=== PATIENT | female | born 1950 | race Caucasian/White ===

== ENCOUNTER 2016-07-02 07:31 | Day surgery (SDC) | payer MEDICARE, OTHER ==
[~2016-07-02] VITALS: Ht 154.9 cm; Wt 51.4 kg
[~2016-07-02 07:31] MED LIST: AMLO10 PO; AMLO10TA2 PEG; ATOR10TA15 PEG; BACL20TA PEG; CEFE2INJ2 IV; CHLO.12%30 BU; COZA25TA PO; DOCU100S PEG; FAMO40TA PEG; GENE10SO PEG; LIPI10TA PO; LOSA25TA PEG; METHY5 PO; METO25TA3 PO; MIRTA15 PO; MODA200T12 PEG; PANT20 PO; Pill Splitter OTHER; VANC1000P IV; [UNRECOGNIZED DRUG - CODE] IV
[2016-07-02 08:06] VITALS: BP 102/69; PULSE 82; RESP 20; TEMP 97.7; O2SAT 99
[2016-07-02] MEDS ORDERED: ROPI0.25 PO (08:40)
[2016-07-02] MEDS ORDERED: [UNRECOGNIZED DRUG - OTHER] PO (08:40)
[2016-07-02] MEDS ORDERED: FISH120014 PO (08:40)
[2016-07-02] MEDS ORDERED: FISHCAP4 PO (08:40)
[2016-07-02] MEDS ORDERED: VITA500T49 PO (08:40)
[2016-07-02] MEDS ORDERED: DIVA250T3 PO (08:40)
[2016-07-02] MEDS ORDERED: NITR1CAP37 PO (08:40)
[2016-07-02] MEDS ORDERED: ALEN1TAB48 PO (08:40)
[2016-07-02] MEDS ORDERED: CALC500C16 CHEW (08:40)
[2016-07-02] MEDS ORDERED: MIRA33504 PO (08:40)
[2016-07-02] MEDS ORDERED: [UNRECOGNIZED DRUG - OTHER] (08:40)
[2016-07-02] MEDS ORDERED: MULTTAB67 PO (08:40)
[2016-07-02] MEDS ORDERED: LACT10SO PO (08:40)
[2016-07-02] MEDS ORDERED: SODIUM CHLORIDE 0.9% 1000 ML IV SCH (08:45)
[2016-07-02] MEDS ORDERED: LEVOFLOXACIN 500 MG PREMIX 100 ML - nephrostomy tube insertion or exchange IV SCH (08:45)
[2016-07-02 08:54] LABS: AUTOMATED NEUTROPHIL # 7.8 TH/MM3 (1.8-7.7); BASOPHIL % 0.3 % (0.0-2.0); EOSINOPHIL # 0.2 TH/MM3 (0-0.4); EOSINOPHIL % 1.7 % (0.0-4.0); HEMATOCRIT 37.3 % (35.0-46.0); HEMO FLAGS DIFF FINAL; LYMPHOCYTE # 1.2 TH/MM3 (1.0-4.8); MEAN CELL VOLUME 89.5 FL (80.0-100.0); MEAN CORPUSCULAR HEMOGLOBIN 31.6 PG (27.0-34.0); MEAN CORPUSCULAR HGB CONC 35.3 % (32.0-36.0); MONO % 8.3 % (0.0-8.0); NEUT % 77.7 % (16.0-70.0); PLATELET COUNT 189 TH/MM3 (150-450); RED BLOOD COUNT 4.17 MIL/MM3 (4.00-5.30); RED CELL DISTRIBUTION WIDTH 13.8 % (11.6-17.2)
[2016-07-02 09:01] LABS: APTT (PATIENT) 27.9 SEC (24.3-30.1); PROTHROMBIN TIME - PATIENT 10.7 SEC (9.8-11.6)
[2016-07-02] MEDS ORDERED: fentaNYL CITRATE 250 MCG/5 ML AMP ONE (10:18)
[2016-07-02] MEDS ORDERED: MIDAZOLAM HCL 5 MG/5 ML VIAL ONE (10:18)
[2016-07-02] MEDS ORDERED: ePHEDrine/NS 25 MG/5 ML SYR ONE (11:12)
[2016-07-02] MEDS ORDERED: IOHEXOL 350 MG/ML 50 ML BTL (for RAD DIAG) OTHER ONE (11:54)
[2016-07-02 11:55] VITALS: BP 89/56; PULSE 96; RESP 18; O2SAT 96
--- NOTE | 2016-07-02 11:57 | PD.RAD ---
Post Procedure Progress Note Pre Procedure Diagnosis: (1) Acute urinary retention (2) Urinary tract bacterial infections Post Procedure Diagnosis: (1) Urinary tract bacterial infections (2) Acute urinary retention Procedure Date: Jul 02, 2016 Supervising Radiologist: Adrian Kauffman Proceduralist/Assist: Vernon Miranda, RT(R), RT Lopez(R)() Anesthesia: Local, Analgesia, Conscious Sedation Plan of Activity Patient to Unit: ROPU Patient Condition: Good See PACS Report for procedural detail/treatment Drainage Procedure Procedure 1 Imaging Guidance: Fluoroscopy, Ultrasound Procedure Type: Suprapubic Tube Procedure: Placement [place]: 16 Drainage: [place] drainage Fluid Description: Adrian Zheng MD Jul 02, 2016 11:56
[2016-07-02 12:10] VITALS: BP 86/58; PULSE 67; RESP 18; O2SAT 92
[2016-07-02 12:15] VITALS: BP 86/58; PULSE 67; RESP 18; O2SAT 92
[2016-07-02 12:40] VITALS: BP 95/58; PULSE 84; RESP 18; O2SAT 97
[2016-07-02 13:10] VITALS: BP 97/51; PULSE 85; RESP 18; O2SAT 97
--- NOTE | 2016-07-04 08:53 | RADRPT ---
EXAM DATE/TIME: 07/02/2016 00:00 [facility] COMPARISON: No previous studies available for comparison. INDICATIONS : Patient presents with neurogenic bladder in need of peripheral intravenous access for medication admi nistration. MEDICAL HISTORY : CVA UTI Confusion HEP C Leukemia Osteoporosis GERD SURGICAL HISTORY : Trach and removal PEG tube Ovary cyst Bladder sx ENCOUNTER: Initial ACUITY: 2 weeks PAIN SCORE: 0/10 LOCATION: N/A IMAGE SERIES: 0 ACCESS: Right basilic vein DEVICE(S): 1.) 3/4 [place] Dilator PROCEDURE : 1. Ultrasound guided venous access. The risks, benefits and alternatives to the procedure were explained and verbal and written consent w as obtained. The site was prepped in sterile fashion. Full sterile technique was used, including ca p, mask, sterile gloves and gown and a large sterile sheet. Hand hygiene and 2% chlorhexidine and/or betadine/alcohol prep was utilized per protocol for cutaneous antisepsis. The skin and subcutaneous tissues were infiltrated with local anesthetic solution. With ultrasound guidance the prescribed vein was punctured for venous access. A 4 [place] dilator was placed and was flushed and locked with heparin. The patient tolerated procedure well and there were n o complications. CONCLUSION: Uncomplicated ultrasound guided venous access. Adrian Kauffman MD on July 04, 2016 at 8:51 Board Certified Radiologist. This report was verified electronically.
--- NOTE | 2016-07-04 08:53 | RADRPT ---
EXAM DATE/TIME: 07/02/2016 10:32 [facility] COMPARISON: No previous studies available for comparison. INDICATIONS : Patient presents with neurogenic bladder in need of suprapubic catheter placement for drainage. MEDICAL HISTORY : CVA UTI Confusion HEP C Leukemia Osteoporosis GERD SURGICAL HISTORY : Trach and removal PEG tube Ovary cyst Bladder sx ENCOUNTER: Initial ACUITY: 2 weeks PAIN SCORE: 0/10 LOCATION: N/A FLUORO TIME: 1.3 minutes IMAGE SERIES: 3 SEDATION TIME: 30 minutes CONTRAST: 30 cc Omnipaque 350 (iohexol) Suprapubic tube MEDICATION(S): 1.) 2 mg midazolam (Versed) IV 2.) 100 mcg fentanyl (Sublimaze) IV DEVICE(S): 1.) Thompson catheter 16FR PROCEDURE : 1. Ultrasound localization of the bladder. 2. Suprapubic catheter placement. 3. Conscious sedation with continuous EKG and oximetry monitoring. The risks, benefits and alternatives to the procedure were explained and verbal and written consent w as obtained. The site was prepped in sterile fashion. Full sterile technique was used, including ca p, mask, sterile gloves and gown and a large sterile sheet. Hand hygiene and 2% chlorhexidine and/or betadine/alcohol prep was utilized per protocol for cutaneous antisepsis. The skin and subcutaneous tissues were infiltrated with local anesthetic solution. Utilizing ultrasound and fluoroscopic guidance the urinary bladder was localized. Just above the pub ic symphysis in the midline a dermatotomy was made and serial dilatation was performed to accept a 16 [place] Thompson catheter. The balloon was inflated and positive contrast was injected to document intr aluminal position. Conscious sedation was performed with the prescribed dosages and duration as above in the presence of an independent trained radiology nurse to assist in the monitoring of the patient. EKG and oximetry remained stable throughout the procedure. The patient tolerated the procedure well and there were n o complications. The patient was sent to post anesthesia recovery in stable condition. CONCLUSION: Uncomplicated suprapubic catheter placement. Adrian Kauffman MD on July 04, 2016 at 8:51 Board Certified Radiologist. This report was verified electronically.
== END 2016-07-02 15:15 ==
LOC: HROP 07:31 → HRIP 07:32 → HROP 15:15
PROVIDERS: ATTEND Urology
DX: R33.9 Retention of urine, unspecified (principal); N39.0 Urinary tract infection, site not specified; B96.89 Other specified bacterial agents as the cause of diseases classified elsewhere; N31.9 Neuromuscular dysfunction of bladder, unspecified; B19.20 Unspecified viral hepatitis C without hepatic coma; K21.9 Gastro-esophageal reflux disease without esophagitis; M81.0 Age-related osteoporosis without current pathological fracture; Z86.73 Personal history of transient ischemic attack (TIA), and cerebral infarction without residual deficits
CPT/HCPCS: 36410; 51102; 76937; 77002; 85025; 85610; 85730; 99152; 99153; C1769; C1894; J1956; J2250; J3010; J7030; Q9967